=== PATIENT | male | born 1990 | race Hispanic/Latino ===

== ENCOUNTER 2019-01-02 18:33 | Emergency (ER) | payer OTHER ==
[2019-01-02] MEDS ORDERED: OCTYL 2-CYANOACRYLATE 1 EACH TP ONE (18:49)
== END 2019-01-02 19:04 | disposition home or self-care (01) ==
LOC: EDH 18:33
DX: S01.81XA Laceration without foreign body of other part of head, initial encounter (principal); W22.8XXA Striking against or struck by other objects, initial encounter; Y93.89 Activity, other specified; Y92.69 Other specified industrial and construction area as the place of occurrence of the external cause; Y99.8 Other external cause status
CPT/HCPCS: 12011